=== PATIENT | male | born 1970 | race Caucasian/White ===

== ENCOUNTER 2017-07-02 18:20 | Emergency (ER) | payer SELFPAY ==
[2017-07-02 18:21] VITALS: BMI 41.5
[2017-07-02 21:36] LABS: BASO # 0.1 K/uL (0.0-0.2); BASO % 0.6 % (0.0-2.0); EOS # 0.1 K/uL (0.0-0.7); EOS % 1.4 % (0.0-4.0); HEMATOCRIT 40.2 % (35.0-51.0); LYMPH # 3.1 K/uL (1.0-4.3); LYMPH % 34.3 % (20.0-40.0); MEAN CELL VOLUME 70.6 fL (80.0-94.0); MEAN CORPUSCULAR HEMOGLOBIN 22.4 pg (27.0-31.0); MEAN CORPUSCULAR HGB CONC 31.8 g/dL (33.0-37.0); MEAN PLATELET VOLUME 9.8 fL (7.2-11.7); MONO # 0.7 K/uL (0.0-0.8); MONO % 7.7 % (0.0-10.0); RED CELL DISTRIBUTION WIDTH 15.2 % (11.5-14.5)
--- NOTE | 2017-07-02 21:36 | C.PDOC ---
History Of Present Illness 46 year old male who presents to the ER with a complaint of lower back pain, lower leg pain/swelling, and left hand cramping of the past 3 months. Patient was seen in the ER 1 year ago for similar back pain but could not follow up due to insurance issues. Denies fever. Time Seen by Provider: 07/02/17 20:58 Chief Complaint (Nursing): Lower Extremity Problem/Injury History Per: Patient History/Exam Limitations: no limitations Onset/Duration Of Symptoms: Days Current Symptoms Are (Timing): Still Present Recent travel outside of the [place]: No Past Medical History Reviewed: Historical Data, Nursing Documentation, Vital Signs Vital Signs: Last Vital Signs Temp 98.9 F 07/02/17 23:02 Pulse 84 07/02/17 23:02 Resp 18 07/02/17 23:02 BP 130/79 07/02/17 23:02 Pulse Ox 96 07/02/17 23:02 - Medical History PMH: HTN Surgical History: No Surg Hx Family History: States: Unknown Family Hx - Social History Hx Tobacco Use: No Hx Alcohol Use: No Hx Substance Use: No - Immunization History Hx Tetanus Toxoid Vaccination: No Hx Influenza Vaccination: No Hx Pneumococcal Vaccination: No Review Of Systems Constitutional: Negative for: Fever Musculoskeletal: Positive for: Back Pain, Hand Pain, Leg Pain Physical Exam - Physical Exam Additional Physical Exam Comments: Constitutional: No acute distress. Head: Normocephalic. Atraumatic. Eyes: PERRL. EOMI. ENT: Moist mucous membranes. Neck: Supple. Cardiovascular: Regular rate. Radial pulses 2+ bilaterally. Chest: No tenderness. Respiratory: Clear to auscultation bilaterally. GI: Soft. Nontender. Nondistended. Back: Right paraspinal tenderness, no midline. Musculoskeletal: Bilateral anterior leg tenderness diffusely, no swelling. Skin: No rash. Neurologic: Alert, no focal deficit. Left Hand: Sensation to light tough subjectively abnormal to first 3 digits and radial aspect of 4th digit, normal to 5th digit and ulnar aspect of 4th digit. ED Course And Treatment - Laboratory Results Result Diagrams: 07/02/17 21:30 07/02/17 21:30 O2 Sat by Pulse Oximetry: 98 Medical Decision Making Medical Decision Making: Plan: * CXR * Toradol CXR no acute disease. Labs unremarkable, no abnormalities in proBNP, protein, kidney disease. Will discharge home, f/u Ortho, Hand, and primary care. Advised wrist splint and ibuprofen. Disposition - Disposition Referrals: [facility] at [facility] [Outside] Jose Schwarz III, MD [Staff Provider] - Fred Pérez MD [Staff Provider] - Disposition: HOME/ ROUTINE Disposition Time: 22:00 Condition: STABLE Prescriptions: Ibuprofen [Motrin] 600 mg PO Q6 #25 tab Instructions: Carpal Tunnel Syndrome (ED), Back Pain (ED) Forms: [employer] (Urdu) - Clinical Impression Clinical Impression: Carpal tunnel syndrome, Back pain - Scribe Statement The provider has reviewed the documentation as recorded by the Scribe Johann Dang All medical record entries made by the Scribe were at my direction and personally dictated by me. I have reviewed the chart and agree that the record accurately reflects my personal performance of the history, physical exam, medical decision making, and the department course for this patient. I have also personally directed, reviewed, and agree with the discharge instructions and disposition.
[2017-07-02 21:39] LABS: RBC URINE 1 /hpf (0-3); URINE BACTERIA RARE (<OCC); URINE BILIRUBIN NEGATIVE (NEGATIVE); URINE BLOOD NEGATIVE (NEGATIVE); URINE COLOR Yellow (YELLOW); URINE GLUCOSE (UA) NORMAL (Normal); URINE KETONE NEGATIVE (NEGATIVE); URINE LEUKOCYTE ESTERASE NEG Leu/uL (Negative); URINE PROTEIN NEGATIVE (NEGATIVE); WBC URINE < 1 /hpf (0-5); WHITE BLOOD COUNT 9.2 K/uL (4.8-10.8)
[2017-07-02 21:41] LABS: CHLORIDE 102 mmol/L (98-107)
[2017-07-02 21:42] LABS: POTASSIUM 4.1 mmol/L (3.6-5.2); SODIUM 140 mmol/L (132-148)
[2017-07-02 21:44] LABS: ALB/GLOB RATIO 1.1 (1.0-2.1); ALKALINE PHOSPHATASE 75 U/L (38-126); ALT/SGPT 54 U/L (21-72); AST/SGOT 22 U/L (17-59); BILIRUBIN,TOTAL 0.7 mg/dL (0.2-1.3); BLOOD UREA NITROGEN 16 mg/dL (9-20); CARBON DIOXIDE 29 mmol/L (22-30); GFR AFRICAN-AMERICAN > 60; TOTAL PROTEIN 7.1 g/dL (6.3-8.3)
[2017-07-02 21:45] LABS: CALCIUM 9.1 mg/dl (8.6-10.4); GLUCOSE,RANDOM 88 mg/dL (75-110)
[2017-07-02 23:03] VITALS: BP 130/79; PULSE 84; RESP 18; TEMP 98.9
[2017-07-02 23:25] VITALS: O2SAT 98
--- NOTE | 2017-07-03 10:35 | RAD ---
HISTORY: r/o PNA COMPARISON: Chest x-ray performed 09/10/16 TECHNIQUE: Chest PA and lateral FINDINGS: Examination limited by habitus and hypoinflation. LUNGS: No focal consolidation. Please note that chest x-ray has limited sensitivity for the detection of pulmonary masses. PLEURA: No significant pleural effusion identified. No definite pneumothorax . CARDIOVASCULAR: Heart size appears borderline enlarged, likely exaggerated by hypoinflation. OSSEOUS STRUCTURES: Degenerative changes of the spine. VISUALIZED UPPER ABDOMEN: Unremarkable. OTHER FINDINGS: None. IMPRESSION: No focal consolidation, significant pleural effusion, or definite pneumothorax identified.
== END 2017-07-02 23:03 | disposition home or self-care (01) ==
LOC: C.ER 18:20
DX: G56.02 Carpal tunnel syndrome, left upper limb (principal); M54.5 Low back pain
CPT/HCPCS: 71020; 80053; 81001; 83880; 85025; 96374; 99284; J1885

== ENCOUNTER 2017-12-05 11:44 | Emergency (ER) | payer OTHER ==
[2017-12-05 11:44] VITALS: BMI 41.5
[2017-12-05 12:21] VITALS: BP 141/86; PULSE 88; RESP 20; TEMP 98.5; O2SAT 96
--- NOTE | 2017-12-05 13:23 | C.PDOC ---
History Of Present Illness 47 y/o male presents to ED with complaints of worsening back pain for 3 days radiating to right leg. Patient states pain developed 5 months ago but has worsen, improved with Advil. Patient has prior visits to ED for same symptoms but has failed to follow up secondary to insurance issues. Patient denies fever , chills, bowel/bladder incontinence or any other complaints at this time. Time Seen by Provider: 12/05/17 12:52 Chief Complaint (Nursing): Back Pain History Per: Patient History/Exam Limitations: no limitations Onset/Duration Of Symptoms: Days Current Symptoms Are (Timing): Still Present Quality Of Discomfort: "Pain" Past Medical History Reviewed: Historical Data, Nursing Documentation, Vital Signs Vital Signs: Last Vital Signs Temp 98.5 F 12/05/17 12:19 Pulse 88 12/05/17 12:19 Resp 20 12/05/17 12:19 BP 141/86 12/05/17 12:19 Pulse Ox 96 12/06/17 19:49 - Medical History PMH: HTN Surgical History: No Surg Hx Family History: States: No Known Family Hx - Social History Hx Tobacco Use: No Hx Alcohol Use: No Hx Substance Use: No - Immunization History Hx Tetanus Toxoid Vaccination: No Hx Influenza Vaccination: No Hx Pneumococcal Vaccination: No Review Of Systems Constitutional: Negative for: Fever, Chills Gastrointestinal: Negative for: Nausea, Vomiting Genitourinary: Negative for: Dysuria, Hematuria Musculoskeletal: Positive for: Back Pain, Leg Pain. Negative for: Neck Pain Physical Exam - Physical Exam Appears: Non-toxic, No Acute Distress Skin: Warm, Dry, No Rash Head: Atraumatic, Normacephalic Oral Mucosa: Moist Neck: Normal ROM, Supple Cardiovascular: Rhythm Regular, No Murmur Respiratory: Normal Breath Sounds, No Rales, No Rhonchi, No Wheezing Gastrointestinal/Abdominal: Soft, No Tenderness Back: No Vertebral Tenderness, No Straight Leg Raising, Other (diffuse paralumbar tenderness) Extremity: No Calf Tenderness, No Deformity, Other (+1 pitting edema to b/l lower extremities ) Extremity: Bilateral: Normal ROM Pulses: Left Dorsalis Pedis: Normal, Right Dorsalis Pedis: Normal Neurological/Psych: Oriented x3, Normal Motor, Normal Sensation Gait: Steady ED Course And Treatment O2 Sat by Pulse Oximetry: 96 (RA) Pulse Ox Interpretation: Normal Medical Decision Making Medical Decision Making: pt feeling better, cxr neg for pulmonary congestion, d/c home with f/u med clinic. Disposition Counseled Patient/Family Regarding: Studies Performed, Diagnosis, Need For Followup, Rx Given - Disposition Referrals: [facility] at [facility] [Outside] Disposition: HOME/ ROUTINE Disposition Time: 14:18 Condition: STABLE Additional Instructions: Debe hacer un seguimiento en la clnica mdica. Vaya abajo despus del manav para programar lizama lori. [place] ibuprofeno para el dolor. Evite levantar objetos pesados. Mantenga las piernas elevadas por la noche para disminuir la hinchazn. You must follow up in medical clinic. Go downstairs after discharge to make your appointment., Take ibuprofen for pain. Avoid heavy lifting. Keep legs elevated at night to decrease swelling. Prescriptions: Ibuprofen [Motrin] 600 mg PO TID #30 tab Instructions: Chronic Back Pain (ED) Forms: Gen Discharge Inst Botswanan, [employer] (Botswanan) Print Language: NEPALI - Clinical Impression Clinical Impression: Low back strain, Leg edema - PA / PALLIATIVE CARE NURSE PRACTITIONER / Resident Statement MD/DO has reviewed & agrees with the documentation as recorded. - Scribe Statement The provider has reviewed the documentation as recorded by the Mariela Larkin All medical record entries made by the Mariela were at my direction and personally dictated by me. I have reviewed the chart and agree that the record accurately reflects my personal performance of the history, physical exam, medical decision making, and the department course for this patient. I have also personally directed, reviewed, and agree with the discharge instructions and disposition.
--- NOTE | 2017-12-05 14:02 | RAD ---
HISTORY: leg swelling. COMPARISON: Chest x-ray performed 07/02/17 TECHNIQUE: Chest PA and lateral FINDINGS: Examination limited by habitus. LUNGS: No focal consolidation. Please note that chest x-ray has limited sensitivity for the detection of pulmonary masses. PLEURA: No significant pleural effusion identified. No definite pneumothorax . CARDIOVASCULAR: The cardiomediastinal silhouette appears within normal limits of size. OSSEOUS STRUCTURES: No acute osseous abnormality identified. VISUALIZED UPPER ABDOMEN: Unremarkable. OTHER FINDINGS: None. IMPRESSION: No focal consolidation, significant pleural effusion, or definite pneumothorax identified.
== END 2017-12-05 14:41 | disposition home or self-care (01) ==
LOC: C.ER 11:44
DX: S39.012A Strain of muscle, fascia and tendon of lower back, initial encounter (principal); X58.XXXA Exposure to other specified factors, initial encounter; R60.0 Localized edema
CPT/HCPCS: 71046; 96372; 99283; J1885

== ENCOUNTER 2018-03-19 08:09 | Emergency (ER) | payer OTHER ==
[2018-03-19 08:10] VITALS: BMI 41.5
[2018-03-19 08:19] VITALS: O2SAT 98
--- NOTE | 2018-03-19 10:18 | RAD ---
PROCEDURE: Radiographs of the Lumbar Spine. HISTORY: pain COMPARISON: Lumbar spine x-rays 06/17/2016 FINDINGS: BONES: Vertebral body heights are maintained. Small anterior osteophyte formation noted at L3 and L4 DISC SPACES: Mild disc space narrowing L5-S1 OTHER FINDINGS: None. IMPRESSION: No lumbar spine fracture or subluxation identified.
[2018-03-19 10:40] LABS: URINE BILIRUBIN NEGATIVE (NEGATIVE); URINE BLOOD NEGATIVE (NEGATIVE); URINE CLARITY Clear (Clear); URINE COLOR Yellow (YELLOW); URINE GLUCOSE (UA) NORMAL (Normal); URINE LEUKOCYTE ESTERASE NEG Leu/uL (Negative); URINE PROTEIN NEGATIVE (NEGATIVE); URINE UROBILINOGEN NORMAL mg/dL (0.2-1.0)
--- NOTE | 2018-03-19 10:53 | RAD ---
PROCEDURE: Bilateral Knee Radiographs. HISTORY: pain COMPARISON: None. FINDINGS: BONES: Right Knee: Normal. No fracture. Left Knee: Normal. No fracture. JOINTS: Right Knee: Normal. No osteoarthritis. Left knee: Normal. No osteoarthritis. SOFT TISSUES: Right Knee: Normal. Left Knee: Normal. JOINT EFFUSION: Right Knee: None. Left Knee: None. OTHER FINDINGS: None. IMPRESSION: Normal radiographs of the knees.
--- NOTE | 2018-03-19 11:03 | C.PDOC ---
History Of Present Illness 47 y/o male presents to ED for evaluation of low back pain and knee pain bilaterally intermittent for few months. Patient describes apin as localized, non-radiating and worse with movement and walking. Patient states he was seen at ED before multiple times for same symptoms, given medication with no improvement. Patient denies recent trauma or injury, headache, dizziness, weakness, neck pain, chest pain, sob, dyspnea, abd. pain, N/V, dysuria, hematuria, saddle anesthesia, incontinence, denies weakness, sensory or vascular deficits to B/L LEs. Ambulate to Ed for evlauation, not in any apparent distress. Time Seen by Provider: 03/19/18 08:34 Chief Complaint (Nursing): Lower Extremity Problem/Injury History Per: Patient History/Exam Limitations: no limitations Onset/Duration Of Symptoms: Days Current Symptoms Are (Timing): Still Present Past Medical History Reviewed: Historical Data, Nursing Documentation, Vital Signs Vital Signs: Last Vital Signs Temp 97.7 F 03/19/18 11:20 Pulse 68 03/19/18 11:20 Resp 18 03/19/18 11:20 BP 130/90 03/19/18 11:20 Pulse Ox 98 03/19/18 11:22 - Medical History PMH: HTN (NO MEDS) Surgical History: No Surg Hx Family History: States: No Known Family Hx - Social History Hx Tobacco Use: No Hx Alcohol Use: No Hx Substance Use: No - Immunization History Hx Tetanus Toxoid Vaccination: No Hx Influenza Vaccination: No Hx Pneumococcal Vaccination: No Review Of Systems Except As Marked, All Systems Reviewed And Found Negative. Constitutional: Negative for: Fever, Chills ENT: Negative for: Ear Discharge, Nose Discharge, Throat Pain, Throat Swelling Respiratory: Negative for: Cough, Shortness of Breath, Wheezing Gastrointestinal: Negative for: Nausea, Vomiting, Abdominal Pain, Diarrhea Musculoskeletal: Positive for: Back Pain, Other (B/L knees) Skin: Negative for: Rash, Bruising Neurological: Negative for: Weakness, Numbness, Altered Mental Status, Headache , Dizziness Physical Exam - Physical Exam Appears: Well, Non-toxic, No Acute Distress Skin: Normal Color, Warm, Dry, No Rash Head: Normacephalic Eye(s): bilateral: PERRL Nose: No Discharge Oral Mucosa: Moist Throat: No Drooling Neck: Trachea Midline, Supple Cardiovascular: Rhythm Regular Respiratory: No Decreased Breath Sounds, No Accessory Muscle Use, No Stridor, No Wheezing Gastrointestinal/Abdominal: Soft, No Tenderness, No Distention, No Guarding Back: No Vertebral Tenderness, Paraspinal Tenderness (lumbar) Extremity: Normal ROM, Tenderness (mild diffuse B/L khees, no edema, no erythema.), No Pedal Edema, No Deformity, No Swelling Neurological/Psych: Oriented x3, Normal Speech, Normal Motor, Normal Sensation, Normal Reflexes ED Course And Treatment O2 Sat by Pulse Oximetry: 98 (RA) Pulse Ox Interpretation: Normal - Other Rad B/L knees X-Ray: Interpreted by Me, Viewed By Me Interpretation: IMPRESSION: Normal radiographs of the knees. L-spine X-Ray: Interpreted by Me, Viewed By Me Interpretation: Creator : Otis Kellogg MD. Dictator : Otis Kellogg MD. [employer] Flatbed Driver : Machine Carton Marker : Otsi Kellogg MD. Approver2 : Report Date : 2017 10:17:28. My Comment : . PROCEDURE: Radiographs of the Lumbar Spine. HISTORY: pain. COMPARISON: Lumbar spine x-rays 06/17/2016. FINDINGS : BONES: Vertebral body heights are maintained. Small anterior osteophyte formation noted at L3 and L4. DISC SPACES: Mild disc space narrowing L5-S1. OTHER FINDINGS: None. IMPRESSION: No lumbar spine fracture or subluxation identified. Progress Note: On re-eval, pt is afebrile, hemodynamicaly stable. Non-toxic. AMbulatory in ED with stable gait. ENT: no acute findings. neck: Supple, (-) meningeal sign, (-) JVD, (-) carotid bruits B/L. Lungs: CTA B/L, BS equal B/L. Abd: benign, (-) guarding, (-) rebound. back: (-) CVA tenderness. Neurologicaly intact. Imaging review and appears normal, no acute findings, UA- normal study. Pt has clinical findings c/w chronic lower back pain, lumbar radiculopathy, B/L knees arthralgia. Pt advised. ref. to F/U with Urologist in 2-3 days for re-eval. return to ED if any worsening or new changes. Disposition Counseled Patient/Family Regarding: Studies Performed, Diagnosis, Need For Followup, Rx Given - Disposition Referrals: [facility] at [facility] [Outside] Disposition: HOME/ ROUTINE Disposition Time: 10:30 Condition: STABLE Additional Instructions: Take medication as prescribed Follow up with Medical Clinic in 2-3 days for further evaluation and treatment. return to Ed if any new changes. Prescriptions: Prednisone [Deltasone] 40 mg PO DAILY #3 tablet traMADol [Ultram] 50 mg PO BID #10 tab Instructions: Low Back Pain (DC), Knee Pain (DC) Forms: [employer] (Faroese) Print Language: IRISH - Clinical Impression Clinical Impression: Lumbar radiculopathy, Arthralgia of knee - PA / DROP FORGER HELPER / Resident Statement MD/DO has reviewed & agrees with the documentation as recorded. - Scribe Statement The provider has reviewed the documentation as recorded by the Abyibperla Larkin All medical record entries made by the Mariela were at my direction and personally dictated by me. I have reviewed the chart and agree that the record accurately reflects my personal performance of the history, physical exam, medical decision making, and the department course for this patient. I have also personally directed, reviewed, and agree with the discharge instructions and disposition.
[2018-03-19 11:32] VITALS: BP 130/90; PULSE 68; RESP 18; TEMP 97.7
== END 2018-03-19 11:25 | disposition home or self-care (01) ==
LOC: C.ER 08:09
DX: M54.16 Radiculopathy, lumbar region (principal); M25.562 Pain in left knee; M25.561 Pain in right knee

== ENCOUNTER 2018-05-23 07:43 | Emergency (ER) | payer OTHER ==
[2018-05-23 07:44] VITALS: BMI 46.3
[2018-05-23 08:07] VITALS: PULSE 50; O2SAT 100
[2018-05-23] MEDS ORDERED: Aspirin 325 mg EC Tablets PO STA (08:15)
--- NOTE | 2018-05-23 08:43 | C.PDOC ---
History Of Present Illness 47 y/o male with history of HTN presents to ED with c/o midsternal chest pain and leg swelling for 1 day. Patient has been seen at ED multiple times for same. Patient is poor historian and denies sob, nausea, vomiting, numbness or any other complaints at this time. Time Seen by Provider: 05/23/18 07:49 Chief Complaint (Nursing): Chest Pain History Per: Patient History/Exam Limitations: no limitations Onset/Duration Of Symptoms: Days Current Symptoms Are (Timing): Still Present Quality: Squeezing Past Medical History Reviewed: Historical Data, Nursing Documentation, Vital Signs Vital Signs: Last Vital Signs Temp 97.5 F L 05/23/18 12:44 Pulse 50 L 05/23/18 12:44 Resp 20 05/23/18 12:44 BP 163/90 H 05/23/18 12:44 Pulse Ox 100 05/23/18 12:44 - Medical History PMH: HTN (NO MEDS) Surgical History: No Surg Hx Family History: States: No Known Family Hx - Social History Hx Tobacco Use: No Hx Alcohol Use: No Hx Substance Use: No - Immunization History Hx Tetanus Toxoid Vaccination: No Hx Influenza Vaccination: No Hx Pneumococcal Vaccination: No Review Of Systems Except As Marked, All Systems Reviewed And Found Negative. Cardiovascular: Positive for: Chest Pain Gastrointestinal: Negative for: Nausea, Vomiting Musculoskeletal: Positive for: Leg Pain (swelling) Skin: Negative for: Rash Physical Exam - Physical Exam Appears: Non-toxic, No Acute Distress, Other (Morbidly obese) Skin: Warm, Dry, No Rash Head: Atraumatic, Normacephalic Eye(s): bilateral: Normal Inspection Oral Mucosa: Moist Chest: Symmetrical Cardiovascular: Rhythm Regular Respiratory: Normal Breath Sounds, No Accessory Muscle Use, No Rales, No Rhonchi , No Wheezing Gastrointestinal/Abdominal: Soft, No Tenderness, No Guarding, No Rebound Extremity: No Pedal Edema, Capillary Refill (<2 seconds) Neurological/Psych: Oriented x3, Normal Speech, Normal Cognition ED Course And Treatment - Laboratory Results Result Diagrams: 05/23/18 08:38 05/23/18 08:38 ECG: Interpreted By Me, Viewed By Me ECG Rhythm: Sinus Bradycardia Rate From EC (BPM) O2 Sat by Pulse Oximetry: 100 (RA) Pulse Ox Interpretation: Normal Medical Decision Making Medical Decision Making: cp r/o acs pe dvt atypcial cp. no ekg chagnes serial trop neg. dvt study neg. dimer neg. pt pain resolved in er. advise outpt fu. Disposition - Disposition Referrals: [facility] [Outside] [facility] [Outside] Ifeanyi Cordova MD [Staff Provider] - Disposition: HOME/ ROUTINE Disposition Time: 12:00 Condition: STABLE Additional Instructions: follow up with your doctor/clinic and specialist. return to er with worsening symptoms or concenrs. Instructions: Chest Pain, Ford Splints (DC) Forms: [employer] (Romansh) - Clinical Impression Clinical Impression: Chest pain, Leg pain - Scribe Statement The provider has reviewed the documentation as recorded by the Scribperla Larkin All medical record entries made by the Scribe were at my direction and personally dictated by me. I have reviewed the chart and agree that the record accurately reflects my personal performance of the history, physical exam, medical decision making, and the department course for this patient. I have also personally directed, reviewed, and agree with the discharge instructions and disposition.
[2018-05-23 08:49] LABS: BASO # 0.1 K/uL (0.0-0.2); BASO % 0.7 % (0.0-2.0); EOS # 0.1 K/uL (0.0-0.7); EOS % 1.8 % (0.0-4.0); HEMOGLOBIN 13.2 g/dL (12.0-18.0); LYMPH # 3.2 K/uL (1.0-4.3); LYMPH % 40.2 % (20.0-40.0); MEAN CELL VOLUME 70.7 fL (80.0-94.0); MEAN CORPUSCULAR HEMOGLOBIN 22.7 pg (27.0-31.0); MEAN CORPUSCULAR HGB CONC 32.1 g/dL (33.0-37.0); MEAN PLATELET VOLUME 9.9 fL (7.2-11.7); MONO # 0.6 K/uL (0.0-0.8); MONO % 7.5 % (0.0-10.0); NEUT % 49.8 % (50.0-75.0); NRBC % 0.1 % (0.0-2.0); RBC 5.8 Mil/uL (4.40-5.90); RED CELL DISTRIBUTION WIDTH 15.3 % (11.5-14.5)
[2018-05-23 08:56] LABS: ALB/GLOB RATIO 1.3 (1.0-2.1); ALBUMIN 4.1 g/dL (3.5-5.0); ALT/SGPT 40 U/L (21-72); AST/SGOT 19 U/L (17-59); BLOOD UREA NITROGEN 12 mg/dL (9-20); CALCIUM 9.1 mg/dl (8.6-10.4); GFR AFRICAN-AMERICAN > 60; GFR NON-AFRICAN AMERICAN > 60
[2018-05-23 09:05] LABS: D DIMER < 200 ng/mlDDU (0-243); PARTIAL THROMBOPLASTIN TIME 32 SECONDS (21-34)
[2018-05-23 09:10] LABS: B-TYPE NATRIURETIC PEPTIDE 28.1 pg/mL (0-450)
--- NOTE | 2018-05-23 11:04 | RAD ---
Date of service: 05/23/2018 HISTORY: chest pain COMPARISON: Chest radiograph dated 12/05/2017. TECHNIQUE: Chest PA and lateral FINDINGS: LUNGS: No active pulmonary disease. PLEURA: No significant pleural effusion identified. No pneumothorax apparent. CARDIOVASCULAR: Cardiomediastinal silhouette stably prominent OSSEOUS STRUCTURES: Unchanged. VISUALIZED UPPER ABDOMEN: Normal. OTHER FINDINGS: None. IMPRESSION: No active disease.
[2018-05-23 12:44] VITALS: BP 163/90; RESP 20; TEMP 97.5
--- NOTE | 2018-05-23 14:29 | VASCLAB ---
Date of service: 05/23/2018 PROCEDURE: Lower Extremity Venous Duplex Exam. HISTORY: Pain / Swelling PRIORS: None. TECHNIQUE: Bilateral common femoral, femoral, popliteal and posterior tibial, peroneal and great saphenous veins were evaluated. Flow was assessed with color Doppler, compressibility, assessment of phasic flow and augmentation response. Report prepared by Johann Hayden, BS, RVT FINDINGS: RIGHT: 1. Common Femoral Vein: 1.1. Compressibility - Fully compressible: Thrombus - None : Flow - Phasic: Augmentation -Normal: Reflux - None. 2. Femoral Vein: 2.1. Compressibility - Fully compressible: Thrombus - None : Flow - Phasic: Augmentation -Normal: Reflux - None. 3. Popliteal Vein: 3.1. Compressibility - Fully compressible: Thrombus - None : Flow - Phasic: Augmentation -Normal: Reflux - None. 4. Posterior Tibial Vein: 4.1. Compressibility - Fully compressible: Thrombus - None: Flow - Phasic: Augmentation -Normal: Reflux - None. 5. Peroneal Vein: 5.1. Compressibility - Fully compressible: Thrombus - None: Flow - Phasic: Augmentation -Normal: Reflux - None. 6. Great Saphenous Vein: 6.1. Compressibility - Fully compressible: Thrombus - None: Flow - Phasic: Augmentation - Normal: Reflux - Severe >4.99s LEFT: 1. Common Femoral Vein: 1.1. Compressibility - Fully compressible: Thrombus - None: Flow - Phasic: Augmentation -Normal: Reflux - None. 2. Femoral Vein: 2.1. Compressibility - Fully compressible: Thrombus - None: Flow - Phasic: Augmentation -Normal: Reflux - None. 3. Popliteal Vein: 3.1. Compressibility - Fully compressible: Thrombus - None : Flow - Phasic: Augmentation -Normal: Reflux - None. 4. Posterior Tibial Vein: 4.1. Compressibility - Fully compressible: Thrombus - None: Flow - Phasic: Augmentation -Normal: Reflux - None. 5. Peroneal Vein: 5.1. Compressibility - Fully compressible: Thrombus - None: Flow - Phasic: Augmentation -Normal: Reflux - None. 6. Great Saphenous Vein: 6.1. Compressibility - Fully compressible: Thrombus - None: Flow - Phasic: Augmentation - Normal: Reflux - None. OTHER FINDINGS: Right: Anechoic structure noted behind the right knee measuring 3.82 x 1.59 c.m., questionable Pope's Cyst. Left: None significant. IMPRESSION: Right: No evidence of deep or superficial vein thrombosis of the right lower extremity. Severe valvular incompetence noted of the right great saphenous vein, of greater than 4.99 seconds. Left: No evidence of deep or superficial vein thrombosis of the left lower extremity. Normal valve function noted of the left side.
--- NOTE | 2018-05-24 11:49 | CARD ---
APPROVED REPORT Date of service: 05/23/2018 EKG Measurement Heart [id number] <Conclusion> Sinus bradycardia Otherwise normal ECG
== END 2018-05-23 12:43 | disposition home or self-care (01) ==
LOC: C.ER 07:43
DX: R07.9 Chest pain, unspecified (principal); M79.606 Pain in leg, unspecified

== ENCOUNTER 2018-12-11 00:24 | Emergency (ER) | payer OTHER ==
[2018-12-11 00:24] VITALS: BMI 46.3
--- NOTE | 2018-12-11 01:58 | C.PDOC ---
History Of Present Illness 48 year old male presents to the ER with cough, body aches, and headache since yesterday. Denies fever or chills, CP, SOB, sick contacts. Time Seen by Provider: 12/11/18 00:59 Chief Complaint (Nursing): Flu-like Symptoms History Per: Patient History/Exam Limitations: no limitations Onset/Duration Of Symptoms: Days Current Symptoms Are (Timing): Still Present Location Of Pain: Diffuse Myalgias, Headache Sick Contacts (Context): None Associated Symptoms: Cough, Myalgias, Other (Headache). denies: Fever, Chills Ear Symptoms: Bilateral: None Recent travel outside of the [place]: No Past Medical History Reviewed: Historical Data, Nursing Documentation, Vital Signs Vital Signs: Last Vital Signs Temp 98.2 F 12/11/18 00:25 Pulse 91 H 12/11/18 00:25 Resp 20 12/11/18 00:25 BP 137/85 12/11/18 00:25 Pulse Ox 96 12/11/18 00:25 - Medical History PMH: HTN (NO MEDS) Family History: States: No Known Family Hx - Social History Hx Tobacco Use: No Hx Alcohol Use: No Hx Substance Use: No - Immunization History Hx Tetanus Toxoid Vaccination: No Hx Influenza Vaccination: No Hx Pneumococcal Vaccination: No Review Of Systems Constitutional: Negative for: Fever, Chills ENT: Negative for: Throat Pain Respiratory: Positive for: Cough Gastrointestinal: Negative for: Vomiting, Diarrhea Musculoskeletal: Positive for: Other (Body aches) Neurological: Positive for: Headache. Negative for: Weakness, Numbness Physical Exam - Physical Exam Appears: Non-toxic, Other (morbidly obese) Skin: Normal Color, Warm, Dry Head: Atraumatic, Normacephalic Eye(s): bilateral: Normal Inspection Ear(s): Bilateral: Normal Nose: Normal Oral Mucosa: Moist Throat: Normal, No Erythema, No Exudate Neck: Normal, Supple Chest: Symmetrical, No Tenderness Cardiovascular: Rhythm Regular Respiratory: Normal Breath Sounds, No Rales, No Rhonchi, No Wheezing Back: Normal Inspection, No CVA Tenderness Neurological/Psych: Oriented x3, Normal Speech Gait: Steady ED Course And Treatment O2 Sat by Pulse Oximetry: 96 (Room air) Pulse Ox Interpretation: Normal - Radiology CXR: Interpreted by Me, Viewed By Me CXR Interpretation: Yes: No Acute Disease. No: Infiltrates Progress Note: CXR ordered, results were negative. Motrin administered. Patient is resting comfortably in the ER in no acute distress, vitals are stable, will discharge home with Rx and instructions to follow up with PMD. Disposition Counseled Patient/Family Regarding: Diagnosis, Need For Followup - Disposition Referrals: [facility] [Outside] Disposition: HOME/ ROUTINE Disposition Time: 01:55 Condition: STABLE Additional Instructions: Increase PO fluids Take all meds prescribed Return to ER if worse Prescriptions: Benzonatate [Tessalon Perles] 200 mg PO TID #14 sgl Cetirizine HCl [Zyrtec] 10 mg PO DAILY #14 capsule Ibuprofen [Motrin Tab] 800 mg PO QID #24 tab Instructions: Viral Upper Respiratory Infection, Adult (DC) Forms: [employer] (Malawian), Work Excuse Print Language: MOLDOVAN - Clinical Impression Clinical Impression: Upper respiratory infection - 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 - Scribe Statement The provider has reviewed the documentation as recorded by the Scribperla Dang All medical record entries made by the Abyibperla were at my direction and personally dictated by me. I have reviewed the chart and agree that the record accurately reflects my personal performance of the history, physical exam, medical decision making, and the department course for this patient. I have also personally directed, reviewed, and agree with the discharge instructions and disposition.
[2018-12-11 02:15] VITALS: BP 120/70; PULSE 80; RESP 14; TEMP 98
[2018-12-11 03:51] VITALS: O2SAT 96
--- NOTE | 2018-12-11 12:24 | RAD ---
Chest x-ray two views HISTORY: Cough. Comparison: 05/23/2018 Findings: No focal infiltrate or effusion. Mild patchy increased markings at the left lung base which may represent some mild atelectasis. Clinical correlation. Top normal heart size. Impression: No focal infiltrate or effusion. Mild patchy increased markings at the left lung base which may represent some mild atelectasis. Clinical correlation.
== END 2018-12-11 02:14 | disposition home or self-care (01) ==
LOC: C.ER 00:24
DX: J06.9 Acute upper respiratory infection, unspecified (principal)

== ENCOUNTER 2019-01-21 09:20 | Emergency (ER) | payer OTHER | END 2019-01-21 09:52 | disposition home or self-care (01) | LOC: C.ER 09:20 ==

== ENCOUNTER 2019-02-06 14:36 | Outpatient (CLI) | payer OTHER | END 2019-02-06 14:37 | disposition home or self-care (01) | LOC: C.RADH 14:36 | DX: M79.642 Pain in left hand (principal) ==